=== PATIENT | female | born 1985 | race Caucasian/White ===

== ENCOUNTER 2019-01-31 21:22 | Inpatient (IN) | payer MEDICAID ==
[~2019-01-31] VITALS: Ht 162.6 cm; Wt 71.4 kg
[2019-01-31 21:40] VITALS: BP 108/59; PULSE 66; RESP 17
[2019-01-31] MEDS ORDERED: PREN-19 PO (21:52)
[2019-01-31] MEDS ORDERED: CALC600T24 PO (21:52)
[2019-01-31] MEDS ORDERED: FERR134T PO (21:52)
[2019-01-31] MEDS ORDERED: FOLI0.4T2 PO (21:52)
[2019-01-31] MEDS ORDERED: ASPI-805 PO (22:17)
[2019-01-31] MEDS ORDERED: ACETAMINOPHEN 500 MG TAB PO ONE (22:18)
[2019-02-01] MEDS ORDERED: LACTATED RINGER'S 1,000 ML IV PRN (00:33)
[2019-02-01] MEDS: LACTATED RINGER'S 1,000 ML IV SCH ×3 (00:40→13:39)
--- NOTE | 2019-02-01 00:44 | TRIAGE ---
OB Triage Datetime Report Generated by CPN: 02/01/2019 00:43 Datetime: 01/31/2019 22:15 Stage of : OB Triage Labor Evaluation Frequency: 8-12 Monitor Mode: External Quality: Mild Pattern: Normal: <= 5 Contractions in 10 Minutes Resting Tone Marshall: Relaxed Heart Rate FHR Baseline Rate: 130 Monitor Mode: External US FHR Baseline Changes: No Baseline Change Variability: Moderate 6-25 bpm Accelerations: 15X15 Decelerations: None Category: Category I Datetime: 01/31/2019 22:03 Stage of : OB Triage Labor Evaluation Frequency: 8-12 Monitor Mode: External Duration (sec)2399: 40-60 Quality: Mild Pattern: Normal: <= 5 Contractions in 10 Minutes Resting Tone Marshall: Relaxed Heart Rate FHR Baseline Rate: 130 Monitor Mode: External US FHR Baseline Changes: No Baseline Change Variability: Moderate 6-25 bpm Accelerations: 15X15 Decelerations: None Category: Category I Vaginal Exam Dilatation (cms): 0.0 Effacement (%): 40 Station: -2 Exam By: Marko Jones Status: Intact Vaginal Bleeding: None Cervix, Consistency: Moderate Cervix, Position: Posterior Datetime: 01/31/2019 21:56 Time of Arrival: 01/31/2019 21:13 EGA: 35.2 Arrived By: Wheelchair Arrived From: Home Chief Complaint: c/o ucs beg 0900 Movement: Present Contractions: Irregular Time Contractions Began: 01/31/2019 09:00 Contractions: q15-20 Rupture of Membranes: Denies Vaginal Bleeding: None Vaginal Discharge: Denies Recent Sexual Intercouse: Denies Abdominal Trauma: Not Applicable Patient Complaints: Contractions Time Provider Notified: 01/31/2019 22:15 Provider Notified: Dr Boucher Initial Plan: EFM, UA,URINE CULTURE, PO HYDRATION, TYLENOL Datetime: 01/31/2019 21:27 Stage of : OB Triage Maternal Assessment Level of Consciousness: Keenly Alert, Responsive Headache: Denies Blurred Vision: No Respiratory Effort: Unlabored Breath Sounds, Right: Clear and Equal Nausea/Vomiting: Denies RUQ Epigastric Pain: Denies Facial Edema: None Monitor Mode: External Quality: Mild Resting Tone Marshall: Relaxed Monitor Mode: External US Comments: 140 Pain Assessment Pain Scale: 7 Pain Presence: Intermittent Pain Type: Cramping Pain Location: Abdomen
[2019-02-01] MEDS ORDERED: OXYTOCIN 30 UNITS/LR 500 ML IV PRN (01:00)
[2019-02-01] MEDS ORDERED: BUTORPHANOL 2 MG INJ IV PRN ×2 (01:00)
[2019-02-01] MEDS ORDERED: AMPICILLIN 2 GM/NS (PMX) 100 ML IV ONE (01:00)
[2019-02-01] MEDS ORDERED: LIDOCAINE 1% (MPF) 30 ML INJ INJ PRN (01:00)
[2019-02-01] MEDS ORDERED: IBUPROFEN 600 MG TAB PO PRN (01:00)
[2019-02-01] MEDS ORDERED: CARBOPROST 250 MCG INJ IM PRN (01:00)
[2019-02-01] MEDS ORDERED: MISOPROSTOL 200 MCG TAB PR PRN (01:00)
[2019-02-01] MEDS ORDERED: BETAMET NA PHOS/AC(6 MG/ML) 2 ML INJ SYG IM ONE (01:00)
[2019-02-01] MEDS ORDERED: METHYLERGONOVINE 0.2 MG INJ IM PRN (01:00)
[2019-02-01] MEDS ORDERED: OXYTOCIN 30 UNITS/LR 500 ML IV SCH ×2 (01:00)
[2019-02-01] MEDS: AMPICILLIN 1 GM/NS (PMX) 50 ML IV SCH ×6 (05:24→20:44)
[2019-02-01] MEDS ORDERED: TERBUTALINE 1 MG/ML INJ SC ONE (12:30)
[2019-02-01] MEDS: NIFEdipine 10 MG CAP PO SCH ×2 (13:32→19:48)
--- NOTE | 2019-02-01 17:08 | HP ---
Date/Time of Note Date/Time of Note DATE: 02/01/19 TIME: 17:03 OB - History Hx of Present Free Text/Dictation 33-year-old female 2 para 1 at 33+ weeks sent in from antepartum testing unit because of elevated blood pressure Last Menstrual Period: May 25, 2018 Estimated Due Date: Mar 17, 2019 : 2 Para: 1 Care: Good Care Ultrasounds: Normal mid trimester US Obstetrical Complications: None, Other (Retroplacental myoma) Medical Complications: None Past Family/Social History * Past Medical, Surgical, Family and Obstetric Histories reviewed from chart. Blood Type: O+ Rubella: immune RPR/VDRL: Negative GBS Status: Unknown HBsAG: Negative OB Admission Exam Vital Signs Vital Signs Vital Signs Date Temp Pulse Resp B/P (MAP) Pulse Ox O2 O2 Flow FiO2 Time Delivery Rate 01/31/19 97.7 66 17 108/59 Room Air 21:40 (75) Physical Exam HEENT: WNL Heart: Rhythm Normal Lungs: Clear, Equal Abdomen: WNL Extremities: Normal Reflexes: Normal Cervical Dilatation: None Effacement: 0% Station: -3 Membranes: Intact Heart Rate: 140's Accelerations: Accelerations Present Decelerations: No Decelerations Varibility: Marked Contractions on Admission: None Last 72 hours Lab Results CBC & BMP 02/01/19 00:40 OB Assessment/Plan Other Assessment: Persistent elevation of blood pressure at 33+ weeks Possible -induced hypertension Other plan: 24-hour urine collection for protein and creatinine clearance NOHEMI MAHARAJ MD Feb 01, 2019 17:07
--- NOTE | 2019-02-01 17:37 | HP ---
Date/Time of Note Date/Time of Note DATE: 02/01/19 TIME: 17:33 OB - History Hx of Present Free Text/Dictation 33-year-old female 2 para 1 at 35+ weeks gestation admitted complaining of onset of labor contractions started last p.m. Denies rupture of membrane or vaginal bleeding Last Menstrual Period: May 29, 2018 Estimated Due Date: Mar 05, 2019 : 2 Para: 1 Past Family/Social History * Past Medical, Surgical, Family and Obstetric Histories reviewed from chart. Blood Type: O+ Rubella: immune RPR/VDRL: Negative GBS Status: Positive HBsAG: Negative OB Admission Exam Vital Signs Vital Signs Vital Signs Date Temp Pulse Resp B/P (MAP) Pulse Ox O2 O2 Flow FiO2 Time Delivery Rate 01/31/19 97.7 66 17 108/59 Room Air 21:40 (75) Physical Exam HEENT: WNL Heart: Rhythm Normal Lungs: Clear, Equal Abdomen: WNL Extremities: Normal Reflexes: Normal Cervical Dilatation: 3cm Effacement: 50% Station: -3 Membranes: Intact Heart Rate: 140's Accelerations: Accelerations Present Decelerations: No Decelerations Varibility: Marked Contractions on Admission: < 5 Minutes Apart Last 72 hours Lab Results CBC & BMP 02/01/19 00:40 OB Assessment/Plan Other Assessment: labor at 35+ weeks Other plan: Started on soft p.o. tocolytic agent Started ampicillin for GBS bacteriuria Steroids were started and will continue to observe until patient receives a second dose NOHEMI MAHARAJ MD Feb 01, 2019 17:36
[2019-02-02] MEDS: NIFEdipine 10 MG CAP PO SCH ×3 (00:53→12:00)
[2019-02-02] MEDS: LACTATED RINGER'S 1,000 ML IV SCH ×2 (00:54→12:09)
[2019-02-02] MEDS: AMPICILLIN 1 GM/NS (PMX) 50 ML IV SCH ×3 (00:54→09:12)
[2019-02-02] MEDS ORDERED: BETAMET NA PHOS/AC(6 MG/ML) 2 ML INJ SYG IM ONE (01:00)
--- NOTE | 2019-02-02 11:18 | QN ---
Documentation Comment Patient has no complaint of a persistent uterine contractions and has minimal uterine contractions with a small amount of bloody show Cervix is long 1 cm Mucus was seen On electronic monitoring minimal uterine contractions seen Will DC patient home on bed and pelvic rest Continue nifedipine Revisit in clinic as scheduled NOHEMI MAHARAJ MD Feb 02, 2019 11:18
--- NOTE | 2019-02-02 11:19 | DS ---
Date/Time of Note Date/Time of Note DATE: 02/02/19 TIME: 11:18 Obstetrical Discharge Record Final Diagnosis Final Diagnosis: not delivered Other Final Diagnosis contractions Complications Labor Tocolytics: Terbutaline, Other (Nifedipine) Condition on Discharge Physical Assessment Voiding: Yes Bowel Movement: Yes Breast: Soft, non-tender, Filling Fundus: Other () Abdomen and Incision: Abdomen is gravid fundal height is 36 Cervix was reexamined and appears to be long and 1 cm Calf Tenderness: No Patient Condition: Good NOHEMI MAHARAJ MD Feb 02, 2019 11:19
--- NOTE | 2019-02-02 11:20 | PD.PPDC ---
OCCUPATIONAL THERAPY SPECIALIST Discharge Instruction Provider Information Physician Information 33-year-old female with contractions Diagnosis [id number] Final Diagnosis: Dectq2x labor Condition [id number] Patient Condition: Rybtg7d Good Diet [id number] Diet: Rusny8c Resume Regular Diet Activity/Restrictions [id number] Activity: [id number] Bedrest May Shower [id number] Restrictions: Wigst0k Nothing in the Vagina [id number] Return to Work or School: [id number] Feb 02, 2019 (Until after delivery) Follow-up Follow-up with Physician: 4, 5, Day/Days (Clinic for follow-up) Return to clinic for Comment: Pelvic and bedrest until delivery NOHEMI MAHARAJ MD Feb 02, 2019 11:20
[2019-02-02] MEDS ORDERED: NIFE10CA PO (11:22)
--- NOTE | 2019-02-02 12:40 | TRIAGE ---
OB Triage Datetime Report Generated by CPN: 02/02/2019 12:39 Datetime: 02/02/2019 11:27 Frequency: 0 Monitor Mode: External [facility] [place] [place] [facility]: Relaxed FHR Baseline Rate: 130 Monitor Mode: External US FHR Baseline Changes: No Baseline Change Variability: Moderate 6-25 bpm Accelerations: 15X15 Decelerations: None Category: Category I Pain Scale: 0 Pain Presence: None/Denies Datetime: 02/02/2019 11:08 Dilatation (cms): 1.0 Effacement (%): 30 Station: -2 Exam By: PS Vaginal Bleeding: None Cervix, Consistency: Moderate Cervix, Position: Midposition Presentation 'A': Cephalic Lie 'A': Longitudinal Datetime: 02/02/2019 08:14 Frequency: OCCASIONAL Monitor Mode: External Duration (sec)2399: 20-40 Quality: Mild Pattern: Normal: <= 5 Contractions in 10 Minutes [facility] [place]: Relaxed FHR Baseline Rate: 125 Monitor Mode: External US FHR Baseline Changes: No Baseline Change Variability: Moderate 6-25 bpm Accelerations: 15X15 Decelerations: None Category: Category I Pain Scale: 0 Pain Presence: None/Denies Pain Relief Measures: Comfort Measures Datetime: 02/02/2019 08:09 Frequency: IRREGULAR Monitor Mode: External Duration (sec)2399: 60-80 Quality: Mild Pattern: Normal: <= 5 Contractions in 10 Minutes [facility] [place]: Relaxed FHR Baseline Rate: 135 Monitor Mode: External US FHR Baseline Changes: No Baseline Change Variability: Moderate 6-25 bpm Accelerations: 15X15 Decelerations: None Category: Category I Pain Scale: 0 Pain Presence: None/Denies Datetime: 02/02/2019 07:20 Frequency: OCCASIONAL Monitor Mode: External Duration (sec)2399: 30-50 Quality: Mild Pattern: Normal: <= 5 Contractions in 10 Minutes [facility] [place]: Relaxed Pain Scale: 2 Pain Presence: Intermittent Pain Type: Cramping Pain Location: Abdomen; Back Pain Relief Measures: Comfort Measures Membrane Status: Intact Datetime: 02/02/2019 07:19 Assessment Type: Ongoing Assessment Level of Consciousness: Keenly Alert, Responsive DTR's/Clonus: DTRs 2+; No Clonus Headache: Denies Blurred Vision: No Respiratory Effort: Unlabored; Regular Rhythm; Equal Expansion Breath Sounds, Left: Clear and Equal Breath Sounds, Right: Clear and Equal Nausea/Vomiting: Denies RUQ Epigastric Pain: Denies Lower Extremities Edema: None Degree: None Facial Edema: None History of Falling: (0) No Secondary Diagnosis: (0) No Ambulatory Aid: (0) Bedrest/Nurse Assist IV Therapy: (0) No Gait: (0) Normal/Bedrest/Immobile Mental Status: (0) Oriented to Own Ability Fall Score: 0 Fall Risk Score Definition: No Risk: No action required Datetime: 02/02/2019 06:30 Stage of : Labor Frequency: X3/HR Monitor Mode: External Duration (sec)2399: 60-90 Quality: Mild Pattern: Normal: <= 5 Contractions in 10 Minutes [facility] [place]: Relaxed FHR Baseline Rate: 130 Monitor Mode: External US Variability: Moderate 6-25 bpm Accelerations: 15X15 Decelerations: None Pain Presence: None/Denies Pain Goal: 3 Datetime: 02/02/2019 05:30 Stage of : Labor Frequency: X4/HR Monitor Mode: External Duration (sec)2399: 60-90 Quality: Mild Pattern: Normal: <= 5 Contractions in 10 Minutes [facility] [place]: Relaxed FHR Baseline Rate: 130 Monitor Mode: External US Variability: Moderate 6-25 bpm Accelerations: 15X15 Decelerations: None Category: Category I Pain Presence: None/Denies Pain Goal: 3 Datetime: 02/02/2019 04:30 Stage of : Labor Frequency: X2/HR Monitor Mode: External Duration (sec)2399: 60-100 Quality: Mild Pattern: Normal: <= 5 Contractions in 10 Minutes [facility] [place]: Relaxed FHR Baseline Rate: 135 Monitor Mode: External US Variability: Moderate 6-25 bpm Accelerations: 15X15 Decelerations: None Category: Category I Pain Presence: None/Denies Pain Goal: 3 Datetime: 02/02/2019 03:30 Stage of : Labor Frequency: X2/HR Monitor Mode: External Duration (sec)2399: 100-120 Quality: Mild Pattern: Normal: <= 5 Contractions in 10 Minutes [facility] [place]: Relaxed FHR Baseline Rate: 135 Monitor Mode: External US Variability: Moderate 6-25 bpm Accelerations: 15X15 Decelerations: None Category: Category I Pain Presence: None/Denies Pain Goal: 3 Datetime: 02/02/2019 02:30 Stage of : Labor Frequency: X2/HR Monitor Mode: External Duration (sec)2399: 100-120 Quality: Mild Pattern: Normal: <= 5 Contractions in 10 Minutes [facility] [place]: Relaxed FHR Baseline Rate: 135 Monitor Mode: External US Variability: Moderate 6-25 bpm Accelerations: 15X15 Decelerations: None Category: Category I Pain Presence: None/Denies Pain Goal: 3 Datetime: 02/02/2019 01:30 Stage of : Labor Frequency: X1/HR Monitor Mode: External Duration (sec)2399: 60 Quality: Mild Pattern: Normal: <= 5 Contractions in 10 Minutes [facility] [place]: Relaxed FHR Baseline Rate: 135 Monitor Mode: External US Variability: Moderate 6-25 bpm Accelerations: 15X15 Decelerations: None Category: Category I Pain Presence: None/Denies Pain Goal: 3 Datetime: 02/02/2019 00:30 Stage of : Labor Frequency: X4/HR Monitor Mode: External Duration (sec)2399: 60-120 Quality: Mild Pattern: Normal: <= 5 Contractions in 10 Minutes [facility] [place]: Relaxed FHR Baseline Rate: 135 Monitor Mode: External US Variability: Moderate 6-25 bpm Accelerations: 15X15 Decelerations: None Category: Category I Pain Presence: None/Denies Pain Goal: 3 Datetime: 02/01/2019 23:30 Stage of : Labor Frequency: X4/HR Monitor Mode: External Duration (sec)2399: 60-120 Quality: Mild Pattern: Normal: <= 5 Contractions in 10 Minutes [facility] [place]: Relaxed FHR Baseline Rate: 135 Monitor Mode: External US Variability: Moderate 6-25 bpm Accelerations: 15X15 Decelerations: None Pain Presence: None/Denies Pain Goal: 3 Datetime: 02/01/2019 22:30 Stage of : Labor Frequency: 4-7 Monitor Mode: External Duration (sec)2399: 60-120 Quality: Mild Pattern: Normal: <= 5 Contractions in 10 Minutes [facility] [place]: Relaxed FHR Baseline Rate: 135 Monitor Mode: External US Variability: Moderate 6-25 bpm Accelerations: 15X15 Decelerations: None Category: Category I Pain Presence: None/Denies Pain Goal: 3 Datetime: 02/01/2019 21:30 Stage of : Labor Frequency: 4-8 Monitor Mode: External Duration (sec)2399: 60-120 Quality: Mild Pattern: Normal: <= 5 Contractions in 10 Minutes [facility] [place]: Relaxed FHR Baseline Rate: 135 Monitor Mode: External US Variability: Moderate 6-25 bpm Accelerations: 15X15 Decelerations: None Category: Category I Pain Scale: 0 Pain Presence: None/Denies Pain Goal: 3 Datetime: 02/01/2019 20:30 Stage of : Labor Frequency: 5-10 Monitor Mode: External Duration (sec)2399: 50-100 Quality: Mild Pattern: Normal: <= 5 Contractions in 10 Minutes [facility] [place]: Relaxed FHR Baseline Rate: 130 Monitor Mode: External US Variability: Moderate 6-25 bpm Accelerations: 15X15 Decelerations: None Category: Category I Pain Scale: 0 Pain Presence: None/Denies Pain Goal: 3 Datetime: 02/01/2019 19:35 Stage of : Labor Temperature Route: Oral Frequency: X4/HR Monitor Mode: External Duration (sec)2399: 50-100 Quality: Mild Pattern: Normal: <= 5 Contractions in 10 Minutes [facility] [place]: Relaxed FHR Baseline Rate: 130 Monitor Mode: External US Variability: Moderate 6-25 bpm Accelerations: 15X15 Decelerations: None Category: Category I Pain Scale: 5 Pain Presence: Intermittent Pain Type: Cramping Pain Location: Abdomen Pain Goal: 3 Pain Relief Measures: Comfort Measures Datetime: 02/01/2019 19:30 Assessment Type: Ongoing Assessment Level of Consciousness: Keenly Alert, Responsive DTR's/Clonus: DTRs 2+; No Clonus Headache: Denies Blurred Vision: No Respiratory Effort: Unlabored; Regular Rhythm; Equal Expansion Breath Sounds, Left: Clear and Equal Breath Sounds, Right: Clear and Equal Nausea/Vomiting: Denies RUQ Epigastric Pain: Denies Lower Extremities Edema: None Degree: None Facial Edema: None History of Falling: (0) No Secondary Diagnosis: (0) No Ambulatory Aid: (0) Bedrest/Nurse Assist IV Therapy: (0) No Gait: (0) Normal/Bedrest/Immobile Mental Status: (0) Oriented to Own Ability Fall Score: 0 Fall Risk Score Definition: No Risk: No action required Datetime: 02/01/2019 18:38 Frequency: x1 Monitor Mode: External Duration (sec)2399: 40 Quality: Mild Pattern: Normal: <= 5 Contractions in 10 Minutes [facility] [place]: Relaxed FHR Baseline Rate: 125 Monitor Mode: External US Variability: Moderate 6-25 bpm Accelerations: 15X15 Decelerations: None Category: Category I Datetime: 02/01/2019 17:45 Frequency: x5 Monitor Mode: External Duration (sec)2399: 50-100 Quality: Mild Pattern: Normal: <= 5 Contractions in 10 Minutes [facility] [place]: Relaxed FHR Baseline Rate: 130 Monitor Mode: External US Variability: Moderate 6-25 bpm Accelerations: 15X15 Decelerations: None Category: Category I Datetime: 02/01/2019 17:05 Pain Presence: None/Denies Pain Type: N/A Datetime: 02/01/2019 16:44 Headache: Denies Blurred Vision: No RUQ Epigastric Pain: Denies Facial Edema: None Frequency: OCAASIONAL Monitor Mode: External Duration (sec)2399: 60-80 Quality: Mild Pattern: Normal: <= 5 Contractions in 10 Minutes [facility] [place]: Relaxed FHR Baseline Rate: 140 Monitor Mode: External US FHR Baseline Changes: No Baseline Change Variability: Moderate 6-25 bpm Accelerations: 15X15 Decelerations: None Category: Category I Pain Scale: 0 Pain Presence: None/Denies Pain Relief Measures: Comfort Measures Membrane Status: Intact Datetime: 02/01/2019 16:30 Frequency: IRREGULAR Monitor Mode: External Duration (sec)2399: 30-80 Quality: Mild Pattern: Normal: <= 5 Contractions in 10 Minutes [facility] [place] [place] [facility]: Relaxed FHR Baseline Rate: 140 Monitor Mode: External US FHR Baseline Changes: No Baseline Change Variability: Minimal - Undetectable to <=5 bpm Decelerations: None Category: Category II Pain Scale: 0 Pain Presence: None/Denies Datetime: 02/01/2019 15:30 Frequency: OCCASIONAL Monitor Mode: External Duration (sec)2399: 15-30 Quality: Mild Pattern: Normal: <= 5 Contractions in 10 Minutes [facility] [place] [place] [facility]: Relaxed FHR Baseline Rate: 140 Monitor Mode: External US FHR Baseline Changes: No Baseline Change Variability: Moderate 6-25 bpm Accelerations: 15X15 Decelerations: None Datetime: 02/01/2019 14:30 Frequency: OCCASIONAL Monitor Mode: External Duration (sec)2399: 15-30 Quality: Mild Pattern: Normal: <= 5 Contractions in 10 Minutes [facility] [place] [facility]: Relaxed FHR Baseline Rate: 145 Monitor Mode: External US FHR Baseline Changes: No Baseline Change Variability: Moderate 6-25 bpm Accelerations: 15X15 Decelerations: None Category: Category I Datetime: 02/01/2019 13:40 Frequency: IRRITABILITY Monitor Mode: External Duration (sec)2399: 20-30 Quality: Mild Pattern: Normal: <= 5 Contractions in 10 Minutes [facility] [place] [place] [facility]: Relaxed FHR Baseline Rate: 135 Monitor Mode: External US FHR Baseline Changes: No Baseline Change Variability: Moderate 6-25 bpm Accelerations: 15X15 Decelerations: None Category: Category I Datetime: 02/01/2019 13:20 Frequency: 0 Monitor Mode: External [facility] [place] [place] [facility]: Relaxed FHR Baseline Rate: 140 Monitor Mode: External US FHR Baseline Changes: No Baseline Change Decelerations: None Pain Scale: 0 Pain Presence: None/Denies Pain Relief Measures: Comfort Measures Pain Assessment Comments: REPORTS TERBUTALINE MADE HER SHAKE AND FEELS GOOD NOW Datetime: 02/01/2019 12:20 Frequency: OCCASIONAL Monitor Mode: External Duration (sec)2399: 50 Quality: Mild Pattern: Normal: <= 5 Contractions in 10 Minutes [facility] [place] [facility]: Relaxed FHR Baseline Rate: 130 Monitor Mode: External US FHR Baseline Changes: No Baseline Change Variability: Moderate 6-25 bpm Accelerations: 15X15 Decelerations: None Category: Category I Pain Scale: 0 Pain Presence: None/Denies Pain Relief Measures: Comfort Measures Datetime: 02/01/2019 11:51 Dilatation (cms): 3.0 Effacement (%): 60 Station: -2 Exam By: PS Vaginal Bleeding: None Cervix, Consistency: Moderate Cervix, Position: Posterior Presentation 'A': Cephalic Lie 'A': Longitudinal Datetime: 02/01/2019 11:38 Frequency: IRREGULAR Monitor Mode: External Duration (sec)2399: 20-60 Quality: Mild Pattern: Normal: <= 5 Contractions in 10 Minutes [facility] [place] [facility]: Relaxed FHR Baseline Rate: 145 Monitor Mode: External US FHR Baseline Changes: No Baseline Change Variability: Moderate 6-25 bpm Accelerations: 15X15 Decelerations: None Category: Category I Datetime: 02/01/2019 09:30 Frequency: IRREGULAR Monitor Mode: External Duration (sec)2399: 30-60 Quality: Mild Pattern: Normal: <= 5 Contractions in 10 Minutes [facility] [place] [facility]: Relaxed FHR Baseline Rate: 140 FHR Baseline Changes: No Baseline Change Variability: Moderate 6-25 bpm Accelerations: 15X15 Datetime: 02/01/2019 09:16 Frequency: 8 Monitor Mode: External Duration (sec)2399: 60 Quality: Mild Pattern: Normal: <= 5 Contractions in 10 Minutes [facility] [place] [facility]: Relaxed FHR Baseline Rate: 130 Monitor Mode: External US FHR Baseline Changes: No Baseline Change Variability: Moderate 6-25 bpm Accelerations: 15X15 Decelerations: None Category: Category I Membrane Status: Intact Datetime: 02/01/2019 08:18 Level of Consciousness: Keenly Alert, Responsive DTR's/Clonus: DTRs 1+ Headache: Denies Blurred Vision: No Nausea/Vomiting: Denies RUQ Epigastric Pain: Denies Frequency: 2-5 Monitor Mode: External Duration (sec)2399: 60-80 Quality: Mild Pattern: Normal: <= 5 Contractions in 10 Minutes [facility] [place] [facility]: Relaxed FHR Baseline Rate: 130 Monitor Mode: External US FHR Baseline Changes: No Baseline Change Variability: Moderate 6-25 bpm Accelerations: 15X15 Decelerations: None Category: Category I Membrane Status: Intact Datetime: 02/01/2019 07:24 Frequency: 2-4 Monitor Mode: External Duration (sec)2399: 60-80 Quality: Moderate Pattern: Normal: <= 5 Contractions in 10 Minutes [facility] [place] [facility]: Relaxed FHR Baseline Rate: 140 Monitor Mode: External US FHR Baseline Changes: No Baseline Change Variability: Moderate 6-25 bpm Accelerations: 15X15 Decelerations: None Category: Category I Pain Scale: 4 Pain Presence: Intermittent Pain Type: Contraction Pain Location: Abdomen; Back Pain Relief Measures: Comfort Measures Membrane Status: Intact Datetime: 02/01/2019 07:01 Assessment Type: Ongoing Assessment Level of Consciousness: Keenly Alert, Responsive DTR's/Clonus: DTRs 2+; No Clonus Headache: Denies Blurred Vision: No Respiratory Effort: Unlabored; Regular Rhythm; Equal Expansion Breath Sounds, Left: Clear and Equal Breath Sounds, Right: Clear and Equal Nausea/Vomiting: Denies RUQ Epigastric Pain: Denies Lower Extremities Edema: None Degree: None Upper Extremities Edema: None Degree: None Facial Edema: None History of Falling: (0) No Secondary Diagnosis: (0) No Ambulatory Aid: (0) Bedrest/Nurse Assist IV Therapy: (20) Yes Gait: (0) Normal/Bedrest/Immobile Mental Status: (0) Oriented to Own Ability Fall Score: 20 Fall Risk Score Definition: No Risk: No action required Datetime: 02/01/2019 07:00 Stage of : Labor Frequency: 6-10 Monitor Mode: External Duration (sec)2399: 50-70 Pattern: Normal: <= 5 Contractions in 10 Minutes [facility] [place] [facility]: Non Relaxed FHR Baseline Rate: 135 Monitor Mode: External US FHR Baseline Changes: No Baseline Change Variability: Moderate 6-25 bpm Accelerations: 15X15 Decelerations: None Category: Category I Datetime: 02/01/2019 06:00 Frequency: 5-8 Monitor Mode: External Duration (sec)2399: 40-90 Pattern: Normal: <= 5 Contractions in 10 Minutes [facility] [place] [facility]: Relaxed FHR Baseline Rate: 135 Monitor Mode: External US FHR Baseline Changes: No Baseline Change Variability: Moderate 6-25 bpm Accelerations: 15X15 Decelerations: None Category: Category I Datetime: 02/01/2019 05:00 Frequency: 5-10 Monitor Mode: External Duration (sec)2399: 70-90 Pattern: Normal: <= 5 Contractions in 10 Minutes [facility] [place] [facility]: Relaxed FHR Baseline Rate: 140 Monitor Mode: External US FHR Baseline Changes: No Baseline Change Variability: Moderate 6-25 bpm Accelerations: 15X15 Decelerations: None Category: Category I Datetime: 02/01/2019 04:00 Frequency: 5-12 Monitor Mode: External Duration (sec)2399: 60-100 Pattern: Normal: <= 5 Contractions in 10 Minutes [facility] [place] [facility]: Relaxed FHR Baseline Rate: 135 Monitor Mode: External US FHR Baseline Changes: No Baseline Change Variability: Moderate 6-25 bpm Accelerations: 15X15 Decelerations: None Category: Category I Datetime: 02/01/2019 03:00 Frequency: 4-12 Monitor Mode: External Duration (sec)2399: 50-100 Pattern: Normal: <= 5 Contractions in 10 Minutes [facility] [place] [facility]: Relaxed FHR Baseline Rate: 135 Monitor Mode: External US FHR Baseline Changes: No Baseline Change Variability: Moderate 6-25 bpm Accelerations: 15X15 Decelerations: None Category: Category I Datetime: 02/01/2019 02:00 Frequency: 3-5 Monitor Mode: External Duration (sec)2399: 50-90 Pattern: Normal: <= 5 Contractions in 10 Minutes [facility] [place] [facility]: Relaxed FHR Baseline Rate: 130 Monitor Mode: External US FHR Baseline Changes: No Baseline Change Variability: Moderate 6-25 bpm Accelerations: 15X15 Decelerations: None Category: Category I Datetime: 02/01/2019 01:44 Assessment Type: Admission Assessment Vaginal Bleeding: None Level of Consciousness: Keenly Alert, Responsive DTR's/Clonus: DTRs 2+; No Clonus Headache: Denies Blurred Vision: No Respiratory Effort: Unlabored; Regular Rhythm; Equal Expansion Breath Sounds, Left: Clear and Equal Breath Sounds, Right: Clear and Equal Nausea/Vomiting: Denies RUQ Epigastric Pain: Denies Lower Extremities Edema: None Degree: None Upper Extremities Edema: None Degree: None Facial Edema: None History of Falling: (0) No Secondary Diagnosis: (0) No Ambulatory Aid: (0) Bedrest/Nurse Assist IV Therapy: (20) Yes Gait: (0) Normal/Bedrest/Immobile Mental Status: (0) Oriented to Own Ability Fall Score: 20 Fall Risk Score Definition: No Risk: No action required Pain Scale: 1 Pain Presence: Intermittent Pain Type: Cramping Pain Location: Abdomen Pain Goal: 0 Membrane Status: Intact Datetime: 02/01/2019 00:20 Stage of : OB Triage Datetime: 02/01/2019 00:14 Stage of : OB Triage Dilatation (cms): 0.5 Effacement (%): 60 Station: -2 Exam By: Marko Banks Membrane Status: Intact Vaginal Bleeding: None Cervix, Consistency: Soft Cervix, Position: Posterior Datetime: 01/31/2019 23:41 Stage of : OB Triage Frequency: 2-6 Monitor Mode: External Quality: Mild Pattern: Normal: <= 5 Contractions in 10 Minutes [facility] [place] [facility]: Relaxed FHR Baseline Rate: 125 Monitor Mode: External US FHR Baseline Changes: No Baseline Change Variability: Moderate 6-25 bpm Accelerations: 15X15 Decelerations: None Category: Category I Pain Scale: 8 Pain Presence: Intermittent Pain Type: Contraction Pain Location: Abdomen Datetime: 01/31/2019 22:50 Stage of : OB Triage Pattern: Normal: <= 5 Contractions in 10 Minutes [facility] [place] [facility]: Relaxed FHR Baseline Rate: 125 Monitor Mode: External US FHR Baseline Changes: No Baseline Change Variability: Moderate 6-25 bpm Accelerations: 15X15 Decelerations: None Category: Category I Datetime: 01/31/2019 21:56 EGA: 35.2 Datetime: 12/22/2018 09:40 Presentation 'A': Cephalic
== END 2019-02-02 12:20 | disposition home or self-care (01) | DRG 833 ==
LOC: OBT 21:22 → L-D 21:24 → OBT 02-01 00:20 → L-D 02-01 00:20
PROVIDERS: ADMIT Obstetrics & Gynecology; ATTEND Obstetrics & Gynecology
DX: O60.03 Preterm labor without delivery, third trimester (principal); Z3A.35 35 weeks gestation of pregnancy
CPT/HCPCS: 76815; 76818; 81001; 85025; 85610; 85730; 86592; 86850; 86900; 86901; 87086; 87340; G0463; J0290; J0702; J3105; J7120

== ENCOUNTER 2019-02-28 12:05 | Inpatient (IN) | payer MEDICAID ==
[~2019-02-28] VITALS: Ht 160 cm; Wt 73.1 kg
[~2019-02-28 12:05] MED LIST: ASPI-805 PO; CALC600T24 PO; FERR134T PO; FOLI0.4T2 PO; IBUP-1542 PO; NIFE10CA PO; PREN-19 PO
[2019-02-28 12:39] VITALS: Ht 160 cm; Wt 73.1 kg
[2019-02-28 12:40] VITALS: BP 133/80; PULSE 68; RESP 19
--- NOTE | 2019-02-28 12:48 | TRIAGE ---
OB Triage Datetime Report Generated by CPN: 02/28/2019 12:48 Datetime: 02/28/2019 12:47 Assessment Type: Triage Maternal Assessment Level of Consciousness: Keenly Alert, Responsive DTR's/Clonus: DTRs 2+; No Clonus Headache: Denies Blurred Vision: No Respiratory Effort: Unlabored; Regular Rhythm; Equal Expansion Breath Sounds, Left: Clear and Equal Breath Sounds, Right: Clear and Equal Nausea/Vomiting: Denies RUQ Epigastric Pain: Denies Lower Extremities Edema: None Degree: None Upper Extremities Edema: None Degree: None Facial Edema: None Fall Risk Assessment History of Falling: (0) No Secondary Diagnosis: (0) No Ambulatory Aid: (0) Bedrest/Nurse Assist IV Therapy: (0) No Gait: (0) Normal/Bedrest/Immobile Mental Status: (0) Oriented to Own Ability Fall Score: 0 Fall Risk Score Definition: No Risk: No action required Datetime: 02/28/2019 12:46 Time of Arrival: 02/28/2019 12:04 EGA: 39.2 Arrived By: Ambulatory Arrived From: Home Chief Complaint: UC'S Movement: Present Contractions: Regular Time Contractions Began: 02/28/2019 07:00 Rupture of Membranes: Denies Vaginal Bleeding: None Vaginal Discharge: Denies Recent Sexual Intercouse: Denies Abdominal Trauma: Not Applicable Patient Complaints: Contractions; Cramping Time Provider Notified: 02/28/2019 12:45 Provider Notified: DR ELDER Initial Plan: NST Datetime: 02/28/2019 12:12 EGA: 35.2 Datetime: 02/02/2019 12:03 Comments: OFF EFM ,DCED HOME UNDELIVERED VIA W/C ACCOMPANIED BY HER SISTER Datetime: 02/02/2019 12:02 Labor Evaluation Frequency: 0 Heart Rate FHR Baseline Rate: 125 Monitor Mode: External US FHR Baseline Changes: No Baseline Change Variability: Moderate 6-25 bpm Accelerations: 15X15 Decelerations: None Category: Category I Pain Assessment Pain Scale: 0 Pain Presence: None/Denies Datetime: 02/02/2019 07:19 Fall Score: 0 Fall Risk Score Definition: No Risk: No action required Datetime: 02/01/2019 19:30 Fall Score: 0 Fall Risk Score Definition: No Risk: No action required Datetime: 02/01/2019 07:01 Fall Score: 20 Fall Risk Score Definition: No Risk: No action required Datetime: 02/01/2019 01:44 Fall Score: 20 Fall Risk Score Definition: No Risk: No action required Datetime: 01/31/2019 21:56 EGA: 35.2
[2019-02-28] MEDS ORDERED: MINERAL OIL LIGHT 10 ML VIAL TOP ONE (13:00)
[2019-02-28] MEDS ORDERED: BUTORPHANOL 2 MG INJ IV PRN (13:00)
[2019-02-28] MEDS ORDERED: IBUPROFEN 600 MG TAB PO PRN (13:00)
[2019-02-28] MEDS ORDERED: METHYLERGONOVINE 0.2 MG INJ IM PRN ×2 (13:00→21:00)
[2019-02-28] MEDS ORDERED: OXYTOCIN 30 UNITS/LR 500 ML IV PRN ×2 (13:00→21:00)
[2019-02-28] MEDS ORDERED: MISOPROSTOL 200 MCG TAB PR PRN ×2 (13:00→21:00)
[2019-02-28] MEDS ORDERED: CARBOPROST 250 MCG INJ IM PRN ×2 (13:00→21:00)
[2019-02-28] MEDS ORDERED: LIDOCAINE 1% (MPF) 30 ML INJ INJ PRN (13:00)
[2019-02-28] MEDS ORDERED: OXYTOCIN 30 UNITS/LR 500 ML IV SCH ×2 (13:00)
[2019-02-28] MEDS ORDERED: AMPICILLIN 2 GM/NS (PMX) 100 ML IV ONE (13:00)
[2019-02-28] MEDS: LACTATED RINGER'S 1,000 ML IV SCH ×2 (13:24→13:53)
--- NOTE | 2019-02-28 13:53 | PREAC ---
Date/Time of Note Date/Time of Note DATE: 02/28/19 TIME: 13:52 Anesthesia Eval and Record Evaluation Time Pre-Procedure Interview DATE: 02/28/19 TIME: 13:52 Age 33 Sex female NPO: 8 hrs Preoperative diagnosis Planned procedure labor epidural Past Medical History Past Medical History: Includes Cardio: HTN Surgery & Anesthesia Issues No known issue Meds Anticoagulation: No Beta Mainor within 24 hr: No Reason Beta Mainor not given: Pt. not on B-Mainor Active Scripts Nifedipine* (Procardia*) 10 Mg Capsule, 20 MG PO Q6, #120 CAP 0 Refills Prov:NOHEMI MAHARAJ MD 02/02/19 Reported Medications Aspirin* ([place] Aspirin*) 81 Mg Tab.chew, 81 MG PO DAILY, TAB.CHEW 01/31/19 Folic Acid* (Folic Acid*) 0.4 Mg Tablet, 0.4 MG PO DAILY, TAB 01/31/19 Vit #76/Iron,Carb/FA (Prenatabs Rx Tablet) 1 Each Tablet, 1 EACH PO DAILY, TAB 01/31/19 Ferrous Sulfate (Iron) 134 Mg Tablet, 134 MG PO DAILY, TAB 01/31/19 Calcium Carbonate* (Calcium Carbonate*) 600 MG Ca Tab, 600 MG PO DAILY, TAB 01/31/19 Current Medications Lactated Ringer's 1,000 ml @ 125 mls/hr Q8H IV Last administered on 02/28/19at 13:24; Admin Dose 125 MLS/HR; Start 02/28/19 at 12:42 Ampicillin 100 ml @ 100 mls/hr ONCE ONCE IV Last administered on 02/28/19at 13:25; Admin Dose 100 MLS/HR; Start 02/28/19 at 13:00; Stop 02/28/19 at 13:59 Ampicillin 50 ml @ 100 mls/hr Q4H IV ; Start 02/28/19 at 17:00 Butorphanol Tartrate (Stadol) 2 mg Q2H PRN IV .PAIN SCALE 6-10; Start 02/28/19 at 13:00 Lidocaine (Xylocaine 1% (Mpf)) 30 ml ONCE PRN INJ .EPISIOTOMY; Start 02/28/19 at 13:00 Oxytocin/Lactated Ringer's 500 ml @ 500 mls/hr ONCE POST IV ; Start 02/28/19 at 13:00 Oxytocin/Lactated Ringer's 500 ml @ 125 mls/hr POST IV ; Start 02/28/19 at 13:00 Ibuprofen (Motrin) 600 mg ONCE PRN PO .PAIN 1-5; Start 02/28/19 at 13:00 Oxytocin/Lactated Ringer's 500 ml @ 0 mls/hr ONCE PRN IV .VAGINAL BLEEDING; Start 02/28/19 at 13:00 Methylergonovine Maleate (Methergine) 0.2 mg ONCE PRN IM .VAGINAL BLEEDING; Start 02/28/19 at 13:00 Carboprost Tromethamine (Hemabate) 250 mcg ONCE PRN IM .VAGINAL BLEEDING; Start 02/28/19 at 13:00 Misoprostol (Cytotec) 1,000 mcg ONCE PRN MO .VAGINAL BLEEDING; Start 02/28/19 at 13:00 Meds reviewed: Yes Allergies Coded Allergies: No Known Drug Allergy (Verified Allergy, Unknown, 01/31/19) Allergies Reviewed: Yes Labs/Studies Labs Reviewed: Reviewed by anesthesiologist Result Diagram: 02/28/19 1305 Laboratory Tests 02/28/19 13:05 test: Positive Pre-procedure Exam Last vitals Vital Signs Date Temp Pulse Resp B/P (MAP) Pulse Ox O2 O2 Flow FiO2 Time Delivery Rate 02/28/19 98.1 68 19 133/80 Room Air 12:40 (97) Airway: Adequate mouth opening, Adequate thyromental dist Mallampati: Mallampati II Teeth: Normal Lung: Normal Heart: Normal ASA Physical Status ASA physical status: 2 Emergency: None Planned Anesthetic Neuraxial: Epidural Pre-operative Attestations Prior to commencing anesthesia and surgery, the patient was re-evaluated, there was verification of: *The patient's identity *The results of appropriate recent lab work and preoperative vital signs *The above evaluation not changing prior to induction *Anesthetic plan, risk benefits, alternative and complications discussed with patient/family; questions answered; patient/family understands, accepts and wishes to proceed. AKI HIDALGO Feb 28, 2019 13:53
[2019-02-28] MEDS ORDERED: KETOROLAC 30 MG INJ IV PRN (14:00)
[2019-02-28] MEDS ORDERED: DIPHENHYDRAMINE 50 MG INJ IV PRN (14:00)
[2019-02-28] MEDS ORDERED: HYDROmorphONE 0.5 MG/0.5 ML SYG IV PRN ×2 (14:00)
[2019-02-28] MEDS ORDERED: FENTAnyl 2MCG/ML-ROPIV 0.2% 100 ML BAG EPI SCH (14:00)
[2019-02-28] MEDS ORDERED: NALOXONE (0.4 MG/ML) INJ IV PRN (14:00)
[2019-02-28] MEDS ORDERED: ONDANSETRON 4 MG INJ IV PRN (14:00)
[2019-02-28] MEDS ORDERED: AMPICILLIN 1 GM/NS (PMX) 50 ML IV SCH (17:00)
--- NOTE | 2019-02-28 18:22 | HP ---
Date/Time of Note Date/Time of Note DATE: 02/28/19 TIME: 18:19 OB - History Hx of Present Free Text/Dictation 33-year-old female 2 para 1 at 39 weeks gestation admitted complaining of onset of a labor contraction at 11 AM Chief Complaint: Labor pains Last Menstrual Period: May 29, 2018 Estimated Due Date: Mar 05, 2019 : 2 Para: 1 Care: Good Care Ultrasounds: Normal mid trimester US Obstetrical Complications: None Medical Complications: None Past Family/Social History * Past Medical, Surgical, Family and Obstetric Histories reviewed from chart. Blood Type: O+ Rubella: immune RPR/VDRL: Negative GBS Status: Positive HBsAG: Negative OB Admission Exam Vital Signs Vital Signs Vital Signs Date Temp Pulse Resp B/P (MAP) Pulse Ox O2 O2 Flow FiO2 Time Delivery Rate 02/28/19 98.1 68 19 133/80 Room Air 12:40 (97) Physical Exam HEENT: WNL Heart: Rhythm Normal Lungs: Clear, Equal Abdomen: WNL Extremities: Normal Reflexes: Normal Cervical Dilatation: 5cm Effacement: 100% Station: -2 Membranes: Intact Heart Rate: 140's Accelerations: Accelerations Present Decelerations: No Decelerations Varibility: Marked Contractions on Admission: < 5 Minutes Apart Date/Time Contractions Began: 02/28/2019 11 AM Frequency of Contractions: Every 3 to 4 minutes Intensity: Firm Last 72 hours Lab Results CBC & BMP 02/28/19 13:05 OB Assessment/Plan Reason for admission: active labor Other Assessment: Term gestation Other plan: Proceed with spontaneous labor NOHEMI MAHARAJ MD Feb 28, 2019 18:22
[2019-02-28] MEDS ORDERED: KETOROLAC 30 MG INJ IV STA (18:24)
[2019-02-28] MEDS ORDERED: ACETAMINOPHEN 500 MG TAB PO STA (18:24)
--- NOTE | 2019-02-28 18:24 | LDN ---
Date/Time of Note Date/Time of Note DATE: 02/28/19 TIME: 18:22 Delivery Summary Normal spontaneous vaginal delivery of a viable infant over midline episiotomy Weeks of Gestation 39 weeks and 2 days Placenta Delivered: Spontaneously, Intact & Complete Meconium: none Episiotomy: Yes Indication for episiotomy Bradycardic infant Laceration repair: Midline episiotomy was repaired in layers using 2-0 Vicryl in deeper layers and 2-0 chromic and superficial layer Anesthesia type: Epidural Sponge & Needle done & correct: Yes All needle counts correct: Yes Any foreign bodies felt in the: No Delivery Information Sex Infant Sex: female Apgars 1 Minute: 9 5 Minute: 9 Suctioning Nose & mouth suctioned at cici: Yes Delee suction performed: No Umbilical Cord Cord presentations: no nuchal cord Cord Blood was obtained: Yes Mother & Baby Disposition Disposition Mom & Baby to Maternity; Good: Yes (Mother and baby were recovered in good condition) Mom transferred to: Other (Maternity) Baby to NICU: No NOHEMI MAHARAJ MD Feb 28, 2019 18:24
[2019-02-28] MEDS ORDERED: ZOLPIDEM 5 MG TAB PO PRN (21:00)
[2019-02-28] MEDS ORDERED: HYDROCODONE/APAP (5/325) TAB PO PRN (21:00)
[2019-02-28] MEDS ORDERED: BENZOCAINE 20% 56 ML SPRAY TOP PRN (21:00)
[2019-02-28] MEDS: SENNA/DOCUSATE NA (8.6MG/50MG) TAB PO SCH (21:00)
[2019-02-28] MEDS ORDERED: DIBUCAINE 1% 30 GM OINT TOP PRN (21:00)
[2019-02-28] MEDS ORDERED: WITCH HAZEL/GLYCERIN PAD PR PRN (21:00)
[2019-02-28] MEDS ORDERED: LANOLIN HPA 1 PKT TOP PRN (21:00)
[2019-02-28] MEDS: MAGNESIUM HYDROXIDE 30ML CUP PO SCH (21:00)
--- NOTE | 2019-02-28 23:02 | PAC ---
Date/Time of Note Date/Time of Note DATE: 02/28/19 TIME: 23:01 Post-Anesthesia Notes Post-Anesthesia Note Last documented vital signs Vital Signs Date Temp Pulse Resp B/P (MAP) Pulse Ox O2 O2 Flow FiO2 Time Delivery Rate 02/28/19 98.1 68 19 133/80 Room Air 12:40 (97) Activity: WNL Respiratory function: WNL Cardiovascular function: WNL Mental status: Baseline Pain reasonably controlled: Yes Hydration appropriate: Yes Nausea/Vomiting absent: Yes AKI HIDALGO Feb 28, 2019 23:02
[2019-02-28] MEDS: IBUPROFEN 600 MG TAB PO SCH (23:39)
[2019-02-28] MEDS: CEPHALEXIN 500 MG CAP PO SCH (23:39)
[2019-02-28] MEDS: LACTATED RINGER'S 1,000 ML IV* SCH (23:40)
[2019-03-01] VITALS: BP 97/56; PULSE 68; RESP 18
[2019-03-01 04:23] VITALS: BP 110/61; PULSE 61; RESP 18
[2019-03-01] MEDS: LACTATED RINGER'S 1,000 ML IV* SCH ×3 (04:49→20:49)
[2019-03-01] MEDS: CEPHALEXIN 500 MG CAP PO SCH ×4 (05:37→23:49)
[2019-03-01] MEDS: IBUPROFEN 600 MG TAB PO SCH ×4 (05:38→23:49)
[2019-03-01 08:00] VITALS: BP 92/52; PULSE 58; RESP 18
[2019-03-01] MEDS: MAGNESIUM HYDROXIDE 30ML CUP PO SCH ×2 (08:08→21:25)
[2019-03-01] MEDS: SENNA/DOCUSATE NA (8.6MG/50MG) TAB PO SCH ×2 (08:08→21:25)
[2019-03-01] MEDS: HYDROCODONE/APAP (5/325) TAB PO PRN ×2 (08:08→15:52)
[2019-03-01 15:30] VITALS: BP 122/58; PULSE 61; RESP 18
--- NOTE | 2019-03-01 18:14 | DS ---
Date/Time of Note Date/Time of Note Home today or next day DATE: 03/01/19 TIME: 18:12 Obstetrical Discharge Record Final Diagnosis Final Diagnosis: Term delivered Other Final Diagnosis Status post vaginal delivery Vaginal Delivery Obstetrical Delivery: Spontaneous, Episiotomy, Repaired Condition on Discharge Physical Assessment Last Vitals: See nurse's notes Voiding: Yes Bowel Movement: Yes Breast: Soft, non-tender, Filling Fundus: Firm Abdomen and Incision: Abdomen is soft present bowel sounds Episiotomy: Episiotomy is healing well and appears clean Calf Tenderness: No Patient Condition: Good NOHEMI MAHARAJ MD Mar 01, 2019 18:14
--- NOTE | 2019-03-01 18:15 | PD.PPDC ---
NEGATIVE NOTCHER Discharge Instruction Provider Information Physician Information 33-year-old female had vaginal delivery Diagnosis [id number] Final Diagnosis: [id number] Status post vaginal delivery Condition [id number] Patient Condition: Yaito5d Good Diet Cnuwe6Bc Diet: Xniwl5b Resume Regular Diet Activity/Restrictions [id number] Activity: Npyno9e Normal Activity May Shower [id number] Restrictions: [id number] Nothing in the Vagina [id number] Return to Work or School: [id number] Apr 16, 2019 Follow-up Follow-up with Physician: 2, 4, Week/Weeks (In clinic) Return to clinic for [id number] OB Instructions: [id number] Breast Tenderness Depression Comment: Pelvic rest no hard activity for 2 months NOHEMI MAHARAJ MD Mar 01, 2019 18:15
[2019-03-01 19:45] VITALS: BP 111/53; PULSE 62; RESP 18
[2019-03-02 04:32] VITALS: BP 109/54; PULSE 59; RESP 18
[2019-03-02] MEDS: LACTATED RINGER'S 1,000 ML IV* SCH (04:49)
[2019-03-02] MEDS: IBUPROFEN 600 MG TAB PO SCH ×2 (05:36→12:21)
[2019-03-02] MEDS: CEPHALEXIN 500 MG CAP PO SCH ×2 (05:36→12:21)
[2019-03-02 08:35] VITALS: BP 122/61; PULSE 52; RESP 18
[2019-03-02] MEDS ORDERED: MEASLES,MUMPS,RUBELLA VACCINE INJ SC* ONE (09:00)
[2019-03-02] MEDS ORDERED: DIPHTH/TET/ACEL PERTUSS (ADULT) 0.5 ML VIAL IM* ONE (09:00)
[2019-03-02] MEDS ORDERED: VARICELLA VACCINE LIVE/PF 1,350 UNIT/0.5 ML ML SC* ONE (09:00)
[2019-03-02] MEDS: SENNA/DOCUSATE NA (8.6MG/50MG) TAB PO SCH (09:21)
[2019-03-02] MEDS: MAGNESIUM HYDROXIDE 30ML CUP PO SCH (09:21)
--- NOTE | 2019-03-03 19:58 | DELSUM ---
Delivery Summary A-C Datetime Report Generated by CPN: 03/03/2019 19:58 DELIVERY PERSONNEL Safety Trainer: Brody, Alyse MATERNAL INFORMATION Delivery Anesthesia: Epidural Medications in Delivery: LR with 30 Unit Pitocin Delivery QBL (ml): 200 Placenta Cultured: No Maternal Complications: None Other Maternal Complications: 39.2 W LABOR SUMMARY EDC: 03/05/2019 00:00 No. Babies in Womb: 1 Attempted: No Labor Anesthesia: Epidural LABOR INFORMATION Reason for Induction: Not Applicable Onset of Labor: 02/28/2019 08:00 Complete Dilatation: 02/28/2019 10:42 Group B Beta Strep: Positive Antibiotics # of Doses: Ampicillin x1 Antibiotics Time of Last Dose: 02/28/2019 13:25 Steroids Given: Partial Course Reason Steroids Not Administered: Indication Other Reason Not Administered: at 35 weeks MEMBRANES Membranes Rupture Method: Artificial Rupture of Membranes: 02/28/2019 17:54 Length of Rupture (hr): 0.10 Amniotic Fluid Color: Clear Amniotic Fluid Amount: Moderate Amniotic Fluid Odor: None STAGES OF LABOR Stage 1 hr: 2 Stage 1 min: 42 Stage 2 hr: 7 Stage 2 min: 18 Stage 3 hr: 0 Stage 3 min: 3 Total Time in Labor hr: 10 Total Time in Labor min: 3 VAGINAL DELIVERY Episiotomy: Median Laceration Extension: N/A Laceration Type: None Laceration Repair: Yes Initial Vag Sponge Count: 10 Final Vag Sponge Count: 10 Initial Vag Sharps Count: 1 Final Vag Sharps Count: 3 Sponge Count Correct: Yes Sharps Count Correct: Yes BABY A INFORMATION Delivery Date/Time: 02/28/2019 18:00 Method of Delivery: Vaginal Born in Route : No : N/A Forceps: N/A Vacuum Extraction: N/A Shoulder Dystocia : N/A SHOULDER DYSTOCIA BABY A Infant Delivery Date/Time: 02/28/2019 18:00 PRESENTATION/POSITION BABY A Presentation: Cephalic Cephalic Presentation: Vertex Vertex Position: Left Occipital Posterior Breech Presentation: N/A PLACENTA INFORMATION BABY A Placenta Delivery Time : 02/28/2019 18:03 Placenta Method of Delivery: Spontaneous Placenta Status: Delivered SCORES BABY A Heart Rate 1 min: >100 bpm Resp Effort 1 min: Good Cry Reflex Irritability 1 min: Cough/Sneeze/Pulls Away Muscle Tone 1 min: Active Motion Color 1 min: Body [place], Extremit Blue Resuscitation Effort 1 min: Tactile Stimulation SCORE 1 MIN: 9 Heart Rate 5 min: >100 bpm Resp Effort 5 min: Good Cry Reflex Irritability 5 min: Cough/Sneeze/Pulls Away Muscle Tone 5 min: Active Motion Color 5 min: Body [place], Extremit Blue Resuscitation Effort 5 min: Tactile Stimulation SCORE 5 MIN: 9 INFANT INFORMATION BABY A Gestational Age at Delivery: 35.3 Gestational Status: Late - 34- 36.6 Weeks Infant Condition : Stable Infant Sex: Female IDENTIFICATION/MEDS BABY A ID Band Number: [id number] ID Band Location: Right Leg; Left Arm Sensor Applied: Yes Sensor Number: [id number] Sensor Location : Cord Clamp Vitamin K Given : Not Given Erythromycin Given: Not Given WEIGHT/LENGTH BABY A Birthweight (gm): 3460 Weight (lb): 7 Weight (oz): 10 Infant Length (in): 20.00 Length (cm): 50.80 CORD INFORMATION BABY A No. Cord Vessels: 3 Nuchal Cord : N/A Cord Blood Taken: Yes Suction: Mouth; Nose ASSESSMENT BABY A Complications: None Physical Findings at Delivery: Within Normal Limits Respirations: Appears Normal Taxation Accountant/ALS Called : No Care By: Dorothy Headley Transferred To: Remains with Mother
== END 2019-03-02 15:40 | disposition home or self-care (01) | DRG 807 ==
LOC: OBT 12:05 → L-D 12:07 → OBT 12:45 → L-D 12:45 → PP1 19:42
PROVIDERS: ADMIT Obstetrics & Gynecology; ATTEND Obstetrics & Gynecology
PROC: 10E0XZZ Delivery of Products of Conception, External Approach (ICD-10-PCS; principal; 2019-02-28)
PROC: 0W8NXZZ Division of Female Perineum, External Approach (ICD-10-PCS; 2019-02-28)
DX: O10.92 Unspecified pre-existing hypertension complicating childbirth (principal); Z37.0 Single live birth; O76 Abnormality in fetal heart rate and rhythm complicating labor and delivery; Z3A.39 39 weeks gestation of pregnancy
CPT/HCPCS: 62322; 85025; 85610; 85730; 86592; 86850; 86900; 86901; 87340; 90716; G0463; J0290; J2210; J2590; J3010; J7120